=== PATIENT | female | born 1950 | race Native Hawaiian/Other Pacific Islander ===

== ENCOUNTER 2016-12-05 17:10 | Inpatient (IN) | payer OTHER ==
--- NOTE | 2016-12-05 19:22 | C.PDOC ---
History Of Present Illness Patient presents to the ED with complaints of right forearm, wrist, and hand pain status post fall yesterday. Patient had MRI and X-Ray of the right wrist performed and was referred to ED by cryptographic technician. Denies head injury, nausea, or vomiting. - HPI Time Seen by Provider: 12/05/16 19:22 Chief Complaint (Nursing): Finger,Hand,&Wrist History Per: Patient History/Exam Limitations: no limitations Onset/Duration Of Symptoms: Days (1 day ) Injury Occurred (Timing): Days Ago: (yesterday) Location Of Injury: Right: Forearm, Hand, Wrist Severity: Moderate Pain Scale Rating Of: 4 Recent travel outside of the [place]: No Additional History Per: Prior Records (referred by MRI techclaire ) - Fall Fall:Prior To Injury: Slipped Past Medical History Reviewed: Historical Data, Nursing Documentation, Vital Signs Vital Signs: Last Vital Signs Temp 98.0 F 12/05/16 19:31 Pulse 77 12/05/16 19:31 Resp 18 12/05/16 19:31 BP 167/81 H 12/05/16 19:31 Pulse Ox 97 12/05/16 19:43 - Medical History PMH: Arthritis, Back Problems, Gastrointestinal Ulcer, HTN, Hypercholesterolemia Surgical History: Cholecystectomy Denies: Pacemaker - [facility] Procedures COLONOSCOPY (01/06/12) ESOPHAGOGASTRODUODENOSCOPY [EGD] W/CLOSED BIOPSY (01/06/12) Family History: States: Unknown Family Hx - Social History Hx Tobacco Use: No Hx Alcohol Use: No Hx Substance Use: No - Immunization History Hx Influenza Vaccination: Yes Hx Pneumococcal Vaccination: Yes Review Of Systems Constitutional: Negative for: Fever, Chills Cardiovascular: Negative for: Chest Pain Respiratory: Negative for: Shortness of Breath Gastrointestinal: Negative for: Nausea, Vomiting Genitourinary: Negative for: Dysuria Musculoskeletal: Positive for: Arm Pain (right forearm pain ), Hand Pain (right wrist and hand pain ) Neurological: Negative for: Weakness, Numbness Psych: Negative for: Anxiety Physical Exam - Physical Exam Appears: Non-toxic, No Acute Distress Skin: Warm, Dry Head: Atraumatic, Normacephalic Eye(s): bilateral: Normal Inspection Oral Mucosa: Moist Neck: Trachea Midline, Supple Chest: Symmetrical, No Deformity Cardiovascular: Rhythm Regular, No Murmur Respiratory: No Rales, No Rhonchi, No Wheezing Gastrointestinal/Abdominal: Soft, No Tenderness, No Distention Back: Normal Inspection Extremity: No Normal ROM (decreased ROM of the right wrist secondary to pain. ) , Tenderness (diffuse tenderness of the right forearm ), Capillary Refill (good capillary refill, less than two seconds ), No Deformity, Swelling (mild swelling of the right forearm ), Other (ecchymosis and mild swelling of the dorsum of the right hand ) Pulses: Left Radial: Normal, Right Radial: Normal, Left Dorsalis Pedis: Normal, Right Dorsalis Pedis: Normal Neurological/Psych: Oriented x3 (awake, alert, and oriented x3 ), Normal Speech , Normal Cognition, Other (no focal deficits ) Gait: Unable To Assess ED Course And Treatment - Laboratory Results Result Diagrams: 12/05/16 19:51 12/05/16 19:51 O2 Sat by Pulse Oximetry: 97 (RA) Disposition Discussed With : Gina Gordillo Comment: accepted the pt on his service and took over the care at 8:31 PM Doctor Will See Patient In The: Hospital Counseled Patient/Family Regarding: Studies Performed, Diagnosis - Disposition Disposition: HOSPITALIZED Disposition Time: 19:22 Condition: FAIR Forms: [facility] (Slovenian) - POA Present On Arrival: Falls Or Trauma - Clinical Impression Clinical Impression: Fall, Fracture, radius, distal, Ambulatory dysfunction - Scribe Statement The provider has reviewed the documentation as recorded by the Scribe Gay Negron All medical record entries made by the Scribe were at my direction and personally dictated by me. I have reviewed the chart and agree that the record accurately reflects my personal performance of the history, physical exam, medical decision making, and the department course for this patient. I have also personally directed, reviewed, and agree with the discharge instructions and disposition. Decision To Admit - Pt Status Changed To: Hospital Disposition Of: Inpatient - Admit Certification Admit to Inpatient:: After my assessment, the patient will require hospitalization for at least two midnights. This is because of the severity of symptoms shown, intensity of services needed, and/or the medical risk in this patient being treated as an outpatient. - InPatient: Physician Admission Certification: I certify that this patient requires 2 or more midnights of care for the following reason:: After my assessment, the patient will require hospitalization for at least two midnights. This is because of the severity of symptoms shown, intensity of services needed, and/or the medical risk in this patient being treated as an outpatient. - . Bed Request Type: Regular Admitting Physician: Gina Gordillo Patient Diagnosis: Fall, Fracture, radius, distal, Ambulatory dysfunction
[2016-12-05] MEDS ORDERED: Morphine 4 MG/ML VIAL IV STA (19:38)
[2016-12-05] MEDS ORDERED: Sodium Chloride 0.9% 1,000 ML IV SCH (19:45)
[2016-12-05 19:54] LABS: BASO # 0.1 K/uL (0.0-0.2); BASO % 0.9 % (0.0-2.0); EOS # 0.3 K/uL (0.0-0.7); EOS % 5.6 % (0.0-4.0); HEMATOCRIT 40.8 % (34.0-47.0); LYMPH # 1.5 K/uL (1.0-4.3); LYMPH % 25.5 % (20.0-40.0); MEAN CELL VOLUME 98.1 fL (81.0-99.0); MEAN CORPUSCULAR HEMOGLOBIN 33.8 pg (27.0-31.0); MEAN CORPUSCULAR HGB CONC 34.5 g/dL (33.0-37.0); MEAN PLATELET VOLUME 7.7 fL (7.2-11.7); MONO # 0.5 K/uL (0.0-0.8); MONO % 8.9 % (0.0-10.0); RED CELL DISTRIBUTION WIDTH 12.8 % (11.5-14.5); WHITE BLOOD COUNT 5.9 K/uL (4.8-10.8)
[2016-12-05] MEDS ORDERED: Sodium Chloride 0.9% 1,000 ML ONE (19:55)
[2016-12-05 20:03] LABS: CHLORIDE 101 mmol/L (98-107); POTASSIUM 3.4 mmol/L (3.6-5.2); SODIUM 137 mmol/L (132-148)
[2016-12-05 20:06] LABS: BLOOD UREA NITROGEN 17 mg/dL (7-17); CARBON DIOXIDE 26 mmol/L (22-30); GFR AFRICAN-AMERICAN > 60; GLUCOSE,RANDOM 88 mg/dL (65-105)
[2016-12-05 20:07] LABS: CALCIUM 8.9 mg/dl (8.6-10.4)
[2016-12-05] MEDS ORDERED: guaiFENesin DM 100 mg-10 mg/5 ml UD PO PRN (20:44)
[2016-12-05] MEDS ORDERED: Albuterol-Ipratrop 3 mg / 0.5 (3 ml) UD ONE (20:56)
[2016-12-05] MEDS ORDERED: guaiFENesin DM 100 mg-10 mg/5 ml UD ONE (20:56)
[2016-12-05] MEDS: Albuterol-Ipratrop 3 mg / 0.5 (3 ml) UD INH PRN (21:00)
[2016-12-05 22:44] LABS: RBC URINE 6 /hpf (0-3); URINE BILIRUBIN NEGATIVE (NEGATIVE); URINE BLOOD NEGATIVE (NEGATIVE); URINE COLOR Yellow (YELLOW); URINE GLUCOSE (UA) NORMAL (Normal); URINE KETONE 1+ mg/dL (NEGATIVE); URINE LEUKOCYTE ESTERASE NEG Leu/uL (Negative); URINE PROTEIN NEGATIVE (NEGATIVE); WBC URINE 2 /hpf (0-5)
[2016-12-05] MEDS: Oxycodone/Acetaminophen 5/325 mg Tab PO PRN (23:56)
[2016-12-05 23:58] LABS: INR 0.9
[2016-12-06] MEDS: Oxycodone/Acetaminophen 5/325 mg Tab PO PRN (09:40)
[2016-12-06] MEDS ORDERED: Home Med 1 UNIT (Meloxicam [Mobic] 15 MG) PO SCH ×2 (10:00)
[2016-12-06] MEDS: Pantoprazole 40 mg EC Tab PO SCH (13:00)
[2016-12-06] MEDS ORDERED: Potassium Chloride 20 mEq ER Tab PO SCH (14:15)
--- NOTE | 2016-12-07 09:56 | HP ---
HISTORY OF PRESENT ILLNESS: The patient is a 66-year-old female, admitted to the hospital for a fall, sustained a radial fracture, was in severe pain, put in a splint. Advised admission. PAST MEDICAL HISTORY: Hypertension. PHYSICAL EXAMINATION: GENERAL: The patient is awake, alert, and oriented. VITAL SIGNS: Temperature 98 and pulse 90. HEENT: Within normal limits. NECK: Supple. CHEST: Symmetrical. HEART: Regular. ABDOMEN: Soft. EXTREMITIES: No edema. IMPRESSION: There is a splint applied to the right forearm distal from the recurrent fall and fractured radius, arthritis, spinal stenosis, hypertension, pain management, also consult . Gina Gordillo MD
--- NOTE | 2016-12-07 10:04 | CP.PCM.PN ---
Subjective - Date & Time of Evaluation Date of Evaluation: 12/07/16 Time of Evaluation: 13:30 - Subjective Subjective: Patient was admitted for right distal fracture for ortho f/u; ortho is recommending that the patient f/u in the clinic as an outpatient as is dr schroeder however the patient is convinced she is in too much pain to go home. She has no other complaints; denies fevers/chills, MEREDITH, CP, SOB, abdominal pain, N/V/ D, dysuria/freq/urg or lower extremity pain/swelling. Objective - Vital Signs/Intake and Output Vital Signs (last 24 hours): Temp Pulse Resp BP Pulse Ox 98.1 F 46 L 18 168/79 H 95 12/07/16 07:05 12/07/16 07:05 12/07/16 07:05 12/07/16 07:05 12/07/16 07:05 Intake and Output: 12/07/16 12/07/16 06:59 18:59 Intake Total 150 Balance 150 - Medications Medications: Current Medications Albuterol/Ipratropium (Duoneb 3 Mg/0.5 Mg (3 Ml) Ud) 3 ml INH RQ4 PRN PRN Reason: cough/wheezing Last Admin: 12/05/16 21:00 Dose: 3 ml Amlodipine Besylate (Norvasc) 10 mg PO DAILY [facility] Last Admin: 12/06/16 09:40 Dose: 10 mg Diphenhydramine HCl (Benadryl) 25 mg PO Q6 PRN PRN Reason: Itching / Pruritus Last Admin: 12/06/16 19:11 Dose: 25 mg Guaifenesin/Dextromethorphan (Robitussin Dm) 5 ml PO QID PRN PRN Reason: Cough Last Admin: 12/05/16 20:57 Dose: 5 ml Home Med (Meloxicam [Mobic]) 15 mg PO DAILY [facility] Ketorolac Tromethamine (Toradol) 30 mg IVP Q6 PRN PRN Reason: Pain, Mild (1-3) Last Admin: 12/06/16 19:11 Dose: 30 mg Losartan Potassium (Cozaar) 100 mg PO DAILY [facility] Last Admin: 12/06/16 09:40 Dose: 100 mg Oxycodone/Acetaminophen (Percocet 5/325 Mg Tab) 1 tab PO Q4 PRN PRN Reason: pain Stop: 12/08/16 20:38 Last Admin: 12/06/16 09:40 Dose: 1 tab Pantoprazole Sodium (Protonix Ec Tab) 40 mg PO DAILY [facility] Last Admin: 12/06/16 13:00 Dose: 40 mg Pneumococcal Polyvalent Vaccine (Pneumovax 23 Vaccine) 0.5 ml IM .ONCE ONE Stop: 12/08/16 10:01 Promethazine HCl/Codeine (Phenergan/Codeine Oral Syrup) 5 ml PO Q4 PRN PRN Reason: Cough Rosuvastatin Calcium (Crestor) 10 mg PO DAILY [facility] Last Admin: 12/06/16 09:40 Dose: 10 mg - Labs Labs: 12/05/16 19:51 12/05/16 19:51 PT 10.4 SECONDS (9.7-12.2) 12/05/16 23:27 INR 0.9 12/05/16 23:27 - Constitutional Appears: Non-toxic - Head Exam Head Exam: ATRAUMATIC - Eye Exam Eye Exam: EOMI Pupil Exam: PERRL - ENT Exam ENT Exam: Mucous Membranes Moist - Neck Exam Neck Exam: Full ROM - Respiratory Exam Respiratory Exam: Clear to Ausculation Bilateral, NORMAL BREATHING PATTERN. absent: Rales, Rhonchi - Cardiovascular Exam Cardiovascular Exam: REGULAR RHYTHM - GI/Abdominal Exam GI & Abdominal Exam: Soft, Normal Bowel Sounds - Extremities Exam Extremities Exam: Full ROM (patient has a cast in place with a sling; patient is uncomfortable but not in distress ). absent: Calf Tenderness - Back Exam Back Exam: NORMAL INSPECTION. absent: CVA tenderness (L), CVA tenderness (R) - Neurological Exam Neurological Exam: Alert, Awake, Oriented x3 - Psychiatric Exam Psychiatric exam: Anxious - Skin Skin Exam: Warm Assessment and Plan - Assessment and Plan (Free Text) Assessment: 66yo F admitted for R distal radius fx R Distal radius fx -appreciate ortho recs; recommending that the patient be discharged and follow up as outpatient for her fracture -not recommending to change the cast at this time either -x-ray shows that the fracture has sufficiently been reduced -patient already has cast in place -percocet prescription printed for pain control for the patient HTN -c/w home meds; please refer to [facility] -c/w with home meds; please refer to [facility] Prophylaxis Pepcid heart healthy diet scd All management as per Dr. Schroeder
[2016-12-07] MEDS: Pantoprazole 40 mg EC Tab PO SCH (10:24)
[2016-12-07] MEDS: Promethazine/Cod 6.25mg-10mg/5ml Syr UD PO PRN ×2 (10:25→22:15)
--- NOTE | 2016-12-07 11:42 | RAD ---
PROCEDURE: Bilateral wrists dated 12/07/2016 Multiple views of the left wrist. Additionally, three views of the right wrist performed through a fiberglass cast. HISTORY: Right t wrist distal radius fracture COMPARISON: No prior FINDINGS: BONES: Current study reveals a slightly impacted and probably comminuted transverse fracture extending through the distal right radius. . There is relative satisfactory alignment of the fracture fragments. Left wrist appears intact without evidence of acute displaced fracture nor dislocation. . There are no radiopaque foreign body seen. IMPRESSION: Transverse apparent comminuted and slightly impacted fracture distal right radius as above. No evidence of acute left wrist fracture.
--- NOTE | 2016-12-07 16:26 | CT ---
CT right wrist History: Distal radial fracture. Comparison: X-ray dated 12/07/2016 Technique: Multiple contiguous axial images were performed through the right wrist without the use of intravenous contrast. Subsequently, sagittal and coronal reformatted images were obtained. Findings: Impacted comminuted fracture of the distal right radius extending horizontally predominantly through the physis extending to the circumferential cortices. There is a suggestion of a vertically oriented component on series 601, images 27 and 28 which possibly extends through epiphysis to the articular surface. Correlation with MRI may be helpful if clinically indicated. Patchy osteopenia and overlying cast somewhat limit evaluation of the carpal bones and metacarpal bases. No evidence of acute displaced fracture of the visualized carpal bones. More limited evaluation of the metacarpal bases. Prominent reticulation and edema within the circumferential subcutaneous soft tissues. Impression: Impacted comminuted fracture of the distal right radius extending horizontally predominantly through the physis extending to the circumferential cortices. There is a suggestion of a vertically oriented component on series 601, images 27 and 28 which possibly extends through epiphysis to the articular surface. Correlation with MRI may be helpful if clinically indicated.
[2016-12-07] MEDS: Oxycodone/Acetaminophen 5/325 mg Tab PO PRN ×2 (17:44→23:43)
[2016-12-07 18:21] VITALS: RESP 20; O2SAT 97
--- NOTE | 2016-12-08 07:33 | CP.PCM.PN ---
Subjective - Date & Time of Evaluation Date of Evaluation: 12/08/16 Time of Evaluation: 11:00 - Subjective Subjective: Dr. Gordillo note: Patient seen and examined in room. Patient has a cast on her right arm. Objective - Vital Signs/Intake and Output Vital Signs (last 24 hours): Temp Pulse Resp BP Pulse Ox 97.5 F L 52 L 20 110/68 97 12/07/16 23:25 12/07/16 23:25 12/07/16 23:25 12/08/16 04:30 12/07/16 23:25 Intake and Output: 12/08/16 12/08/16 06:59 18:59 Intake Total 600 Output Total 650 Balance -50 - Medications Medications: Current Medications Albuterol/Ipratropium (Duoneb 3 Mg/0.5 Mg (3 Ml) Ud) 3 ml INH RQ4 PRN PRN Reason: cough/wheezing Last Admin: 12/05/16 21:00 Dose: 3 ml Amlodipine Besylate (Norvasc) 10 mg PO DAILY [facility] Last Admin: 12/07/16 10:24 Dose: 10 mg Diphenhydramine HCl (Benadryl) 25 mg PO Q6 PRN PRN Reason: Itching / Pruritus Last Admin: 12/06/16 19:11 Dose: 25 mg Ketorolac Tromethamine (Toradol) 30 mg IVP Q6 PRN PRN Reason: Pain, Mild (1-3) Last Admin: 12/06/16 19:11 Dose: 30 mg Losartan Potassium (Cozaar) 100 mg PO DAILY [facility] Last Admin: 12/07/16 10:24 Dose: 100 mg Oxycodone/Acetaminophen (Percocet 5/325 Mg Tab) 1 tab PO Q4 PRN PRN Reason: pain 4-10 Stop: 12/08/16 20:38 Last Admin: 12/07/16 23:43 Dose: 1 tab Pantoprazole Sodium (Protonix Ec Tab) 40 mg PO DAILY [facility] Last Admin: 12/07/16 10:24 Dose: 40 mg Pneumococcal Polyvalent Vaccine (Pneumovax 23 Vaccine) 0.5 ml IM .ONCE ONE Stop: 12/08/16 10:01 Promethazine HCl/Codeine (Phenergan/Codeine Oral Syrup) 5 ml PO Q4 PRN PRN Reason: Cough Last Admin: 12/07/16 22:15 Dose: 5 ml Rosuvastatin Calcium (Crestor) 10 mg PO HS [facility] - Labs Labs: 12/05/16 19:51 12/05/16 19:51 PT 10.4 SECONDS (9.7-12.2) 12/05/16 23:27 INR 0.9 12/05/16 23:27 - Constitutional Appears: Non-toxic, No Acute Distress - Respiratory Exam Respiratory Exam: Clear to Ausculation Bilateral. absent: Rales, Rhonchi, Wheezes - Cardiovascular Exam Cardiovascular Exam: REGULAR RHYTHM, RRR, +S1, +S2. absent: Gallop, Rubs - GI/Abdominal Exam GI & Abdominal Exam: Soft - Extremities Exam Extremities Exam: absent: Pedal Edema - Back Exam Back Exam: NORMAL INSPECTION Assessment and Plan - Assessment and Plan (Free Text) Assessment: Assessment: 12/08: Patient discharged to follow up with Dr. Hernandez as outpatient. 66yo F admitted for R distal radius fx R Distal radius fx -appreciate ortho recs; recommending that the patient be discharged and follow up as outpatient for her fracture -not recommending to change the cast at this time either -x-ray shows that the fracture has sufficiently been reduced -patient already has cast in place -percocet prescription printed for pain control for the patient HTN -c/w home meds; please refer to [facility] -c/w with home meds; please refer to [facility] Prophylaxis Pepcid heart healthy diet scd All management as per Dr. Gordillo
[2016-12-08 07:55] VITALS: TEMP 97.8
[2016-12-08] MEDS: Albuterol-Ipratrop 3 mg / 0.5 (3 ml) UD INH PRN (07:58)
[2016-12-08] MEDS ORDERED: Influenza Vaccine 60 mcg/0.5 mL SYR (4YR UP) IM ONE (10:00)
[2016-12-08] MEDS ORDERED: Pneumococcal 23-Valent Vaccine IM ONE (10:00)
[2016-12-08] MEDS: Pantoprazole 40 mg EC Tab PO SCH (10:21)
[2016-12-08] MEDS: Promethazine/Cod 6.25mg-10mg/5ml Syr UD PO PRN (10:21)
[2016-12-08 10:26] VITALS: BP 127/69; PULSE 61
--- NOTE | 2016-12-08 14:49 | CP.PCM.CON ---
History of Present Illness - History of Present Illness History of Present Illness: Orthopedic consultation as requested for Dr. Dumont 66F complains of right wrist pain after fall. She was seen and splinted in the ER, and admitted for intractable pain and unsteady gait. Patient currently complaining of a lot of pain in her wrist. Denies pain in her elbow or shoulder. Denies pain in other extremities. Denies CP/SOB/dizziness/numbness/ tingling. RHD. Review of Systems - Review of Systems All systems: reviewed and no additional remarkable complaints except - Constitutional Additional comments: [id number] fever/chills - Cardiovascular Cardiovascular: As Per HPI - Respiratory Respiratory: As Per HPI - Gastrointestinal Gastrointestinal: As Per HPI - Musculoskeletal Musculoskeletal: As Per HPI - Integumentary Integumentary: Swelling - Neurological Neurological: As Per HPI - Hematologic/Lymphatic Hematologic: absent: As Per HPI, Easy Bleeding, Easy Bruising, Lymphadenopathy, Other Past Patient History - Infectious Disease Hx of Infectious Diseases: None - Past Medical History & Family History Past Medical History?: Yes Past Family History: Reviewed and not pertinent - Past Social History Smoking Status: Never Smoked - CARDIAC Hx Hypercholesterolemia: Yes Hx Hypertension: Yes - PULMONARY Hx Respiratory Disorders: No - NEUROLOGICAL Hx Paralysis: No - HEENT Hx Cataracts: Yes - RENAL Hx Chronic Kidney Disease: No - ENDOCRINE/METABOLIC Hx Endocrine Disorders: No - HEMATOLOGICAL/ONCOLOGICAL Hx Blood Transfusions: No Hx Blood Transfusion Reaction: No - INTEGUMENTARY Hx Dermatological Problems: No - MUSCULOSKELETAL/RHEUMATOLOGICAL Hx Arthritis: Yes - GASTROINTESTINAL Hx Ulcer: Yes - GENITOURINARY/GYNECOLOGICAL Hx Genitourinary Disorders: No - PSYCHIATRIC Hx Substance Use: No - SURGICAL HISTORY Hx Cholecystectomy: Yes - ANESTHESIA Hx Anesthesia: Yes Hx Anesthesia Reactions: No Meds Home Medications: Home Medication List Medication Instructions Recorded Confirmed Type oxyCODONE/Acetaminophen [Percocet 1 ea PO Q6H #20 tab 12/07/16 Rx 5/325 mg Tab] Allergies/Adverse Reactions: Allergies Allergy/AdvReac Type Severity Reaction Status Date / Time Penicillins Allergy Severe RASH Verified 12/05/16 17:26 CRABS Allergy Severe RASH Uncoded 12/05/16 17:26 - Medications Medications: Current Medications Albuterol/Ipratropium (Duoneb 3 Mg/0.5 Mg (3 Ml) Ud) 3 ml INH RQ4 PRN PRN Reason: cough/wheezing Last Admin: 12/08/16 07:58 Dose: 3 ml Amlodipine Besylate (Norvasc) 10 mg PO DAILY [facility] Last Admin: 12/08/16 10:21 Dose: 10 mg Diphenhydramine HCl (Benadryl) 25 mg PO Q6 PRN PRN Reason: Itching / Pruritus Last Admin: 12/06/16 19:11 Dose: 25 mg Ketorolac Tromethamine (Toradol) 30 mg IVP Q6 PRN PRN Reason: Pain, Mild (1-3) Last Admin: 12/08/16 13:31 Dose: 30 mg Losartan Potassium (Cozaar) 100 mg PO DAILY [facility] Last Admin: 12/08/16 10:21 Dose: 100 mg Oxycodone/Acetaminophen (Percocet 5/325 Mg Tab) 1 tab PO Q4 PRN PRN Reason: pain 4-10 Stop: 12/08/16 20:38 Last Admin: 12/07/16 23:43 Dose: 1 tab Pantoprazole Sodium (Protonix Ec Tab) 40 mg PO DAILY [facility] Last Admin: 12/08/16 10:21 Dose: 40 mg Promethazine HCl/Codeine (Phenergan/Codeine Oral Syrup) 5 ml PO Q4 PRN PRN Reason: Cough Last Admin: 12/07/16 22:15 Dose: 5 ml Rosuvastatin Calcium (Crestor) 10 mg PO HS [facility] Physical Exam - Constitutional Appears: Well, No Acute Distress Additional comments: complains of pain during exam able to sit up in bed without assistance or painful distress - Head Exam Head Exam: ATRAUMATIC, NORMAL INSPECTION - Respiratory Exam Respiratory Exam: NORMAL BREATHING PATTERN - Expanded Upper Extremities Exam Right Shoulder exam: full ROM Elbow exam: normal inspection (splinted, non tender) Forearm Wrist exam: swelling (fingers swollen, mild, sling adjusted, instructed on elevation) Neuro motor exam: finger 2-5 abduction intact, thumb abduction, thumb IP flexion intact, thumb opposition intact, wrist extension intact Neurosensory exam: median nerve intact, radial nerve intact, ulnar nerve intact Vascular exam: radial pulse, ulnar pulse - Neurological Exam Neurological exam: Alert, Oriented x3 - Psychiatric Exam Psychiatric exam: Normal Affect, Normal Mood - Skin Skin Exam: Dry, Intact, Normal Color, Warm Results - Vital Signs Recent Vital Signs: Last Vital Signs Temp 97.8 F 12/08/16 07:00 Pulse 61 12/08/16 10:26 Resp 20 12/08/16 07:00 BP 127/69 12/08/16 10:26 Pulse Ox 97 12/08/16 07:00 - Labs Result Diagrams: 12/05/16 19:51 12/05/16 19:51 Assessment & Plan (1) Fracture, radius, distal Assessment and Plan: sugar tong splint intact sling intact, adjusted Position acceptable for discharge. Patient instructed she needs close follow up with orthopedic as outpatient within 1 week, that splint is not to be removed and to be kept dry, and that it is possible that the patient may need surgery in the future, especially if the position of the fracture is not maintained. Patient also advised that pain is to be expected, and to take pain medication as needed. Instructed on elevation (fingers swollen, patient has not been elevating during admission ice keep splint dry/intact call Dr. Dumont for follow up within 1 week without fail d/w Dr. Dumont, agrees with above Status: Acute Radiology Interpretation - Manager Gas Manager Gas:: Radiologist, Telegraph Mechanic - Radiology Interpretation #2 Interpretation: Patient Name / ID : MIRELLA BOGGS D / [id number] Exam Date : 12/07/2016 11:00:17 ( Approved ) Study Comment : Sex / Age : F / 66Y Creator : Franck Ashby MD Dictator : [employer] Grower : [employer] Drilling Machine Operator : Franck Ashby MD Approver2 : Report Date : 12/07/2016 11:40:51 My Comment : PROCEDURE: Bilateral wrists dated 12/07/2016 Multiple views of the left wrist. Additionally, three views of the right wrist performed through a fiberglass cast. HISTORY: Right t wrist distal radius fracture COMPARISON: No prior FINDINGS: BONES: Current study reveals a slightly impacted and probably comminuted transverse fracture extending through the distal right radius. . There is relative satisfactory alignment of the fracture fragments. Left wrist appears intact without evidence of acute displaced fracture nor dislocation. . There are no radiopaque foreign body seen. IMPRESSION: Transverse apparent comminuted and slightly impacted fracture distal right radius as above. No evidence of acute left wrist fracture. Patient Name / ID : MIRELLA BOGGS D / [id number] Exam Date : 12/07/2016 15:21:36 ( Approved ) Study Comment : Sex / Age : F / 66Y Creator : Keshia Schmitt Dictator : Dariel Loomis MD Bean Spr[employer] Grower : [employer] Drilling Machine Operator : Dariel Loomis MD Approver2 : Report Date : 12/07/2016 15:35:29 My Comment : CT right wrist History: Distal radial fracture. Comparison: X-ray dated 12/07/2016 Technique: Multiple contiguous axial images were performed through the right wrist without the use of intravenous contrast. Subsequently, sagittal and coronal reformatted images were obtained. Findings: Impacted comminuted fracture of the distal right radius extending horizontally predominantly through the physis extending to the circumferential cortices. There is a suggestion of a vertically oriented component on series 601, images 27 and 28 which possibly extends through epiphysis to the articular surface. Correlation with MRI may be helpful if clinically indicated. Patchy osteopenia and overlying cast somewhat limit evaluation of the carpal bones and metacarpal bases. No evidence of acute displaced fracture of the visualized carpal bones. More limited evaluation of the metacarpal bases. Prominent reticulation and edema within the circumferential subcutaneous soft tissues. Impression: Impacted comminuted fracture of the distal right radius extending horizontally predominantly through the physis extending to the circumferential cortices. There is a suggestion of a vertically oriented component on series 601, images 27 and 28 which possibly extends through epiphysis to the articular surface. Correlation with MRI may be helpful if clinically indicated.
== END 2016-12-08 15:10 | disposition home or self-care (01) | DRG 563 ==
LOC: C.ER 17:10 → C.9E 20:28 → C.6T 21:58
PROVIDERS: ADMIT Internal Medicine Pulmonary Disease; ATTEND Internal Medicine Pulmonary Disease
DX: S52.501A Unspecified fracture of the lower end of right radius, initial encounter for closed fracture (principal); I10 Essential (primary) hypertension; W19.XXXA Unspecified fall, initial encounter; M48.00 Spinal stenosis, site unspecified; E78.5 Hyperlipidemia, unspecified

== ENCOUNTER 2017-06-26 06:48 | Emergency (ER) | payer OTHER ==
[2017-06-26 07:24] VITALS: RESP 18; TEMP 98.2
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
[2017-06-26 08:44] VITALS: BP 166/79; PULSE 60; O2SAT 96
--- NOTE | 2017-06-26 15:52 | RAD ---
PROCEDURE: Bilateral wrists HISTORY: Trauma COMPARISON: Comparison made with prior bilateral wrist radiographs dated 12/07/2016. . Correlation also made with concurrent radiographs of the right forearm FINDINGS: BONES: There is a healing fracture distal right radius. . No definitive evidence of acute displaced fracture nor dislocation. Mild diffuse demineralization. . The left wrist appears intact without evidence of acute displaced fracture nor dislocation. The osseous structures intact. JOINT SPACES: Mild degenerative osteoarthritis seen along the greater multangular/1st metacarpal articulations bilaterally right greater than left. . SOFT TISSUES: There is mild nonspecific diffuse soft tissue swelling seen along the distal right radius and ulna and wrist. OTHER FINDINGS: None. IMPRESSION: No evidence of acute displaced fracture. Old healed fracture deformity right distal radius. Mild DJD as described
--- NOTE | 2017-06-26 15:54 | RAD ---
PROCEDURE: Radiographs of the Right Forearm HISTORY: Trauma COMPARISON: Comparison made with concurrent radiographs of the right wrist as well as prior radiographs and CT scan of the right wrist and right upper extremity 12/07/2016. TECHNIQUE: Frontal and lateral views obtained. FINDINGS: BONES: Re- demonstrated is an old healed fracture deformity of the distal right radius. . The osseous structures otherwise intact without evidence of acute displaced fracture nor dislocation. There appears to be some mild diffuse soft tissue swelling of the right forearm and right wrist. JOINT SPACES: Mild multi articular degenerative osteoarthritis. The the OTHER FINDINGS: None. IMPRESSION: Old healed fracture deformity distal right radius. No evidence of acute displaced fracture nor dislocation seen at this time
--- NOTE | 2017-06-28 12:22 | CARD ---
APPROVED REPORT EKG Measurement Heart [id number] <Conclusion> Sinus bradycardia T wave abnormality, consider lateral ischemia Abnormal ECG
== END 2017-06-26 08:50 | disposition home or self-care (01) ==
LOC: C.ER 06:48
DX: S63.501A Unspecified sprain of right wrist, initial encounter (principal); W19.XXXA Unspecified fall, initial encounter; R00.2 Palpitations
CPT/HCPCS: 73090; 73110; 93005; 96372; 99284; J1885

== ENCOUNTER 2017-07-09 20:34 | Inpatient (IN) | payer OTHER ==
[2017-07-09 20:40] VITALS: BMI 23.4
[2017-07-09] MEDS ORDERED: Albuterol-Ipratrop 3 mg / 0.5 (3 ml) UD ONE ×2 (20:44→20:47)
--- NOTE | 2017-07-09 20:52 | C.PDOC ---
History Of Present Illness 67 year old female, PMHx of asthma, presents to the ED with complaints of shortness of breath. Patient denies chest pain, palpitations, weakness, numbness , or recent travel. Patient has no other medical complaints. Chief Complaint (Nursing): Shortness Of Breath History Per: Patient History/Exam Limitations: no limitations Onset/Duration Of Symptoms: Hrs Recent travel outside of the [place]: No Past Medical History Reviewed: Historical Data, Nursing Documentation, Vital Signs Vital Signs: Last Vital Signs Temp 98 F 07/09/17 20:35 Pulse 54 L 07/09/17 21:44 Resp 12 07/09/17 21:44 BP 121/77 07/09/17 21:44 Pulse Ox 100 07/09/17 22:01 - Medical History PMH: Arthritis, Back Problems, Fractures, Gastrointestinal Ulcer, HTN, Hypercholesterolemia Denies: Chronic Kidney Disease Surgical History: Cholecystectomy Denies: Pacemaker - [facility] Procedures COLONOSCOPY (01/06/12) ESOPHAGOGASTRODUODENOSCOPY [EGD] W/CLOSED BIOPSY (01/06/12) Family History: States: Unknown Family Hx - Social History Hx Tobacco Use: No Hx Alcohol Use: No Hx Substance Use: No - Immunization History Hx Tetanus Toxoid Vaccination: No Hx Influenza Vaccination: Yes Hx Pneumococcal Vaccination: Yes Review Of Systems Except As Marked, All Systems Reviewed And Found Negative. Constitutional: Negative for: Fever, Chills, Weakness Cardiovascular: Negative for: Chest Pain, Palpitations Respiratory: Positive for: Shortness of Breath Neurological: Negative for: Weakness, Numbness Physical Exam - Physical Exam Appears: Non-toxic, In Acute Distress Skin: Normal Color, Warm, Dry Head: Atraumatic, Normacephalic Eye(s): bilateral: Normal Inspection Oral Mucosa: Moist Chest: Symmetrical Cardiovascular: Rhythm Regular, No Murmur Respiratory: No Normal Breath Sounds (Bilateral coarse breath sounds ), No Rales , No Rhonchi, No Wheezing, Other (Mild dyspneic ) Gastrointestinal/Abdominal: Soft, No Tenderness, No Guarding, No Rebound Extremity: Other (Cast on left foream from previous fracture ) Extremity: Bilateral: No Pedal Edema Neurological/Psych: Oriented x3 ED Course And Treatment - Laboratory Results Result Diagrams: 07/09/17 21:01 07/09/17 21:01 O2 Sat by Pulse Oximetry: 100 (RA) Pulse Ox Interpretation: Normal Medical Decision Making Medical Decision Making: Impression: Shortness of Breath Plan: -ABG -EKG -Bloodwork -Duoneb 3ml INH -Morphine 2mg IVP -Solumedrol 125 mg IVP -Trandate 10mg IV Disposition Discussed With : Gina Gordillo Doctor Will See Patient In The: Hospital Counseled Patient/Family Regarding: Diagnosis - Disposition Disposition: HOSPITALIZED Disposition Time: 21:59 Condition: STABLE Forms: [facility] ([place]ian) - Clinical Impression Clinical Impression: Exacerbation of asthma - Scribe Statement The provider has reviewed the documentation as recorded by the Scribe (Cecilia Hussein) Provider Attestation: All medical record entries made by the Scribe were at my direction and personally dictated by me. I have reviewed the chart and agree that the record accurately reflects my personal performance of the history, physical exam, medical decision making, and the department course for this patient. I have also personally directed, reviewed, and agree with the discharge instructions and disposition.
[2017-07-09] MEDS ORDERED: Albuterol-Ipratrop 3 mg / 0.5 (3 ml) UD INH STA (20:53)
[2017-07-09] MEDS ORDERED: Labetalol 25mg/5ml Syringe ONE (20:53)
[2017-07-09] MEDS ORDERED: Labetalol 5 mg/ml Inj 20ML IV STA (20:54)
[2017-07-09 21:02] LABS: ABG ALLEN TEST PO; ARTERIAL BLOOD GAS HCO3 23.7 mmol/L (21-28); ARTERIAL BLOOD GAS O2 SAT 98.7 % (95-98); ARTERIAL BLOOD GAS PCO2 38 mm/Hg (35-45); ARTERIAL BLOOD GAS PH 7.39 (7.35-7.45); ARTERIAL BLOOD GAS PO2 514 mm/Hg (80-100); ARTERIAL BLOOD GAS TCO2 24.2 mmol/L (22-28)
[2017-07-09 21:04] LABS: BASO # 0.1 K/uL (0.0-0.2); BASO % 2.2 % (0.0-2.0); EOS # 0.2 K/uL (0.0-0.7); EOS % 3.5 % (0.0-4.0); HEMOGLOBIN 13.4 g/dL (11.0-16.0); LYMPH # 1.9 K/uL (1.0-4.3); LYMPH % 33.8 % (20.0-40.0); MEAN CORPUSCULAR HEMOGLOBIN 33.8 pg (27.0-31.0); MEAN CORPUSCULAR HGB CONC 33.8 g/dL (33.0-37.0); MEAN PLATELET VOLUME 7.3 fL (7.2-11.7); MONO # 0.5 K/uL (0.0-0.8); NEUT % 52.5 % (50.0-75.0); RBC 3.95 Mil/uL (3.80-5.20); RED CELL DISTRIBUTION WIDTH 13.2 % (11.5-14.5); WHITE BLOOD COUNT 5.7 K/uL (4.8-10.8)
[2017-07-09] MEDS ORDERED: Morphine 4 MG/ML VIAL ONE (21:12)
[2017-07-09 21:16] LABS: ALB/GLOB RATIO 1.2 (1.0-2.1); ALBUMIN 3.9 g/dL (3.5-5.0); ALT/SGPT 45 U/L (9-52); AST/SGOT 47 U/L (14-36); BLOOD UREA NITROGEN 29 mg/dL (7-17); CALCIUM 8.8 mg/dl (8.6-10.4); GFR AFRICAN-AMERICAN > 60; GFR NON-AFRICAN AMERICAN > 60
[2017-07-09 21:19] LABS: D DIMER < 200 ng/mlDDU (0-243); INR 0.9; PARTIAL THROMBOPLASTIN TIME 31 SECONDS (21-34); PROTHROMBIN TIME 10.2 SECONDS (9.7-12.2)
[2017-07-09 21:28] LABS: B-TYPE NATRIURETIC PEPTIDE 236 pg/mL (0-900)
[2017-07-09 22:30] LABS: SQUAMOUS EPITHIAL 1 /hpf (0-5); URINE BACTERIA OCC (<OCC); URINE BILIRUBIN NEGATIVE (NEGATIVE); URINE BLOOD 2+ (NEGATIVE); URINE CLARITY Hazy (Clear); URINE COLOR Yellow (YELLOW); URINE GLUCOSE (UA) 1+ mg/dL (Normal); URINE LEUKOCYTE ESTERASE NEG Leu/uL (Negative); URINE PROTEIN 1+ mg/dL (NEGATIVE); URINE UROBILINOGEN NORMAL mg/dL (0.2-1.0)
--- NOTE | 2017-07-10 08:01 | RAD ---
Chest x-ray single frontal view History: Shortness of breath. Comparison: 08/30/2015 Findings: Biapical pleural thickening with upper lobe granulomatous changes. No gross focal infiltrate or effusion. Bibasilar breast and nipple shadows. Heart size within normal limits. Calcification at the aortic knob. Degenerative changes in the spine and shoulders. Impression: Biapical pleural thickening with upper lobe granulomatous changes. No gross focal infiltrate or effusion. Bibasilar breast and nipple shadows.
[2017-07-10] MEDS: Enoxaparin 40 mg Syringe SC SCH (10:36)
[2017-07-10] MEDS: Albuterol-Ipratrop 3 mg / 0.5 (3 ml) UD INH PRN ×3 (11:22→19:28)
[2017-07-10] MEDS: MethylPREDNISolone 40 mg Vial IVP SCH ×2 (13:11→21:14)
[2017-07-10] MEDS: Fluticasone-Salmeterol 250-50mcg Diskus INH SCH (19:29)
[2017-07-11] MEDS: MethylPREDNISolone 40 mg Vial IVP SCH ×4 (06:18→21:37)
[2017-07-11] MEDS: Albuterol-Ipratrop 3 mg / 0.5 (3 ml) UD INH PRN ×2 (08:02→19:48)
[2017-07-11] MEDS: Fluticasone-Salmeterol 250-50mcg Diskus INH SCH ×2 (08:02→19:48)
[2017-07-11] MEDS: Enoxaparin 40 mg Syringe SC SCH (09:19)
--- NOTE | 2017-07-11 21:43 | PN ---
DATE: 07/11/2017 SUBJECTIVE: The patient is complaining of headache. bronchodilators, steroids. Gina Gordillo MD
[2017-07-12] MEDS: MethylPREDNISolone 40 mg Vial IVP SCH ×3 (05:43→17:31)
[2017-07-12] MEDS: Fluticasone-Salmeterol 250-50mcg Diskus INH SCH ×2 (07:29→19:35)
[2017-07-12] MEDS: Albuterol-Ipratrop 3 mg / 0.5 (3 ml) UD INH PRN ×3 (07:29→16:39)
--- NOTE | 2017-07-12 08:11 | HP ---
HISTORY OF PRESENT ILLNESS: The patient is a 67-year-old male with history of arthritis, COPD, hypertension, disorder who has a chief complaint of shortness of breath, weakness, fatigue, tiredness, patient came to the ER, advised admission. The patient is . PHYSICAL EXAMINATION: GENERAL: The patient is currently awake, alert. Shortness of breath appear to be improved. VITAL SIGNS: Temperature 98, pulse of 98. HEENT: Within normal limits. NECK: Supple. CHEST: Symmetrical. Decreased air entry bilaterally . HEART: Regular. ABDOMEN: Soft. EXTREMITIES: No edema. IMPRESSION: The patient has chronic obstructive pulmonary disease, bronchitis. Patient bed rest, supportive care. Gina Gordillo MD
[2017-07-12] MEDS: Enoxaparin 40 mg Syringe SC SCH (09:20)
[2017-07-12] MEDS ORDERED: MethylPREDNISolone 40 mg Vial IVP SCH (10:00)
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
[2017-07-12 12:05] LABS: BASO % 0.1 % (0.0-2.0); HEMOGLOBIN 13.6 g/dL (11.0-16.0); LYMPH # 0.3 K/uL (1.0-4.3); LYMPH % 3.8 % (20.0-40.0); MEAN CELL VOLUME 99.6 fL (81.0-99.0); MEAN CORPUSCULAR HEMOGLOBIN 34.8 pg (27.0-31.0); MEAN CORPUSCULAR HGB CONC 34.9 g/dL (33.0-37.0); MEAN PLATELET VOLUME 7.7 fL (7.2-11.7); MONO # 0.1 K/uL (0.0-0.8); MONO % 1.5 % (0.0-10.0); NEUT # 8.1 K/uL (1.8-7.0); NEUT % 94.6 % (50.0-75.0); PLATELET COUNT 256 K/uL (130-400); RED CELL DISTRIBUTION WIDTH 13.1 % (11.5-14.5); WHITE BLOOD COUNT 8.5 K/uL (4.8-10.8)
[2017-07-12 12:20] LABS: ALB/GLOB RATIO 1.3 (1.0-2.1); ALBUMIN 3.9 g/dL (3.5-5.0); ALT/SGPT 29 U/L (9-52); AST/SGOT 31 U/L (14-36); BLOOD UREA NITROGEN 25 mg/dL (7-17); CALCIUM 9.1 mg/dl (8.6-10.4); GFR AFRICAN-AMERICAN > 60; GFR NON-AFRICAN AMERICAN > 60
[2017-07-12 13:00] LABS: LYMPHOCYTE 2 % (20-40); MONOCYTE 2 % (0-10); NEUTROPHIL 96 % (50-75); TOTAL CELLS COUNTED 100
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
[2017-07-12 13:02] LABS: ANISOCYTOSIS SLIGHT; HYPOCHROMIC SLIGHT; PLATELET ESTIMATE NORMAL (NORMAL); POLYCHROMIC SLIGHT
[2017-07-12] MEDS: Lidocaine 5% Patch TD SCH (13:51)
[2017-07-13] MEDS: MethylPREDNISolone 40 mg Vial IVP SCH ×2 (05:13→18:22)
[2017-07-13] MEDS: Albuterol-Ipratrop 3 mg / 0.5 (3 ml) UD INH PRN ×3 (07:27→19:45)
[2017-07-13] MEDS: Fluticasone-Salmeterol 250-50mcg Diskus INH SCH ×2 (07:27→19:45)
[2017-07-13] MEDS: Enoxaparin 40 mg Syringe SC SCH (10:38)
[2017-07-13] MEDS: Lidocaine 5% Patch TD SCH (10:39)
--- NOTE | 2017-07-13 14:05 | CP.PCM.PN ---
Subjective - Date & Time of Evaluation Date of Evaluation: 07/13/17 Time of Evaluation: 08:00 - Subjective Subjective: PGY2 medicine progress note for Dr. Gordillo: Patient was seen and examined at bedside this morning. Patient stated she was upset because Psych saw her yesterday. She was stating that her arm is broken and her body is hot. She was told by Dr. Gordillo that she will be discharged soon but then the patient was upset. She has been refusing KELLY. The patient is eating was, was requesting ensure, and is having regular bowel movement. She is able to ambulate on her own with only mild assistance. Objective - Vital Signs/Intake and Output Vital Signs (last 24 hours): Temp Pulse Resp BP Pulse Ox 98.5 F 61 20 148/68 95 07/13/17 08:33 07/13/17 12:47 07/13/17 08:33 07/13/17 08:33 07/13/17 08:33 Intake and Output: 07/13/17 07/13/17 06:59 18:59 Intake Total 300 Balance 300 - Medications Medications: Current Medications Acetaminophen (Tylenol 325mg Tab) 650 mg PO Q6 PRN PRN Reason: Headache Last Admin: 07/12/17 19:06 Dose: 650 mg Albuterol/Ipratropium (Duoneb 3 Mg/0.5 Mg (3 Ml) Ud) 3 ml INH RQ4 PRN PRN Reason: WHEEZING/SOB Last Admin: 07/13/17 13:40 Dose: 3 ml Amlodipine Besylate (Norvasc) 10 mg PO DAILY [facility] Last Admin: 07/13/17 10:38 Dose: 10 mg Aspirin (Aspirin Chewable) 81 mg PO DAILY [facility] Last Admin: 07/13/17 10:38 Dose: 81 mg Benztropine Mesylate (Cogentin) 0.5 mg PO HS [facility] Last Admin: 07/12/17 21:45 Dose: Not Given Enoxaparin Sodium (Lovenox) 40 mg SC DAILY [facility] Last Admin: 07/13/17 10:38 Dose: Not Given Lidocaine (Lidoderm) 1 ea TD DAILY [facility] Last Admin: 07/13/17 10:39 Dose: 1 ea Lorazepam (Ativan) 0.5 mg PO Q6 PRN PRN Reason: Agitation Losartan Potassium (Cozaar) 100 mg PO DAILY [facility] Last Admin: 07/13/17 10:38 Dose: 100 mg Methylprednisolone (Solu-Medrol) 40 mg IVP Q12H [facility] Last Admin: 07/13/17 05:13 Dose: Not Given Risperidone (Risperdal Tab) 0.5 mg PO [facility] Last Admin: 07/12/17 21:45 Dose: Not Given Rosuvastatin Calcium (Crestor) 10 mg PO [facility] Last Admin: 07/12/17 21:45 Dose: 10 mg Fluticasone/Salmeterol (Advair Diskus 250/50) 1 puff INH RQ12 [facility] Last Admin: 07/13/17 07:27 Dose: 1 puff - Labs Labs: 07/12/17 11:47 07/12/17 11:47 PT 10.2 SECONDS (9.7-12.2) 07/09/17 21:01 INR 0.9 07/09/17 21:01 APTT 31 SECONDS (21-34) 07/09/17 21:01 - Constitutional Appears: Non-toxic, No Acute Distress - Head Exam Head Exam: ATRAUMATIC, NORMAL INSPECTION - Eye Exam Eye Exam: EOMI Pupil Exam: NORMAL ACCOMODATION - ENT Exam ENT Exam: Mucous Membranes Moist - Respiratory Exam Respiratory Exam: Clear to Ausculation Bilateral, NORMAL BREATHING PATTERN. absent: Accessory Muscle Use, Respiratory Distress - Cardiovascular Exam Cardiovascular Exam: REGULAR RHYTHM, +S1, +S2 - GI/Abdominal Exam GI & Abdominal Exam: Soft, Normal Bowel Sounds. absent: Distended, Guarding, Tenderness - Extremities Exam Extremities Exam: Normal Inspection Additional comments: mundo bandages on right arm - Back Exam Back Exam: NORMAL INSPECTION - Neurological Exam Neurological Exam: Alert, Awake, Oriented x3 - Psychiatric Exam Psychiatric exam: Normal Affect, Normal Mood Assessment and Plan - Assessment and Plan (Free Text) Assessment: Asthma exacerbation Duonebs RQ4 prn SOB/wheezing Advair 250/50 1 pugg RQ12 Solumedrol 40mg IVP Q12, Will now switch to Oral prednisone starting tomorrow AM. Patient will need to be discharged on prednisone taper. No wheezing today, improving HTN Norvasc 10mg PO daily Losartan 100mg PO daily HLD Crestor 10mg PO HS ASA 81mg PO daily Arthritis Lidoderm patch prn Tylenol prn pain Hx arm fracture Recent X rays show fx is healing Mundo bandage in place Paranoia Patient states everyone is stealing her medications at her home Patient is disorganized in her thought process Psych eval f/u social work for dispo planning Prophylaxis Lovenox 40mg SC daily heart healthy diet SCDa Dispo: Patient to be discharged tomorrow All management per Dr. Gordillo. Olamide Haddad DO PGY2
--- NOTE | 2017-07-13 15:31 | CARD ---
APPROVED REPORT EKG Measurement Heart [id number] OR [id number] <Conclusion> Normal sinus rhythm Left ventricular hypertrophy with repolarization abnormality Abnormal ECG
[2017-07-14 01:40] VITALS: RESP 20
[2017-07-14] MEDS: MethylPREDNISolone 40 mg Vial IVP SCH (06:06)
[2017-07-14] MEDS: Fluticasone-Salmeterol 250-50mcg Diskus INH SCH (07:22)
[2017-07-14] MEDS: Albuterol-Ipratrop 3 mg / 0.5 (3 ml) UD INH PRN (07:22)
--- NOTE | 2017-07-14 07:38 | CP.PCM.PN ---
Subjective - Date & Time of Evaluation Date of Evaluation: 07/14/17 Time of Evaluation: 07:35 - Subjective Subjective: PGy2 progress note for Dr. Gordillo Pt seen and examined at bedside. No acute events overnight. Patient states that throughout the night she experienced left sided chest pain and left sided cervical neck pain radiating to the shoulder. Pain is intermittent and sharp in nature. Pain kept pt up at night. Patient denies having any SOB, abd pain, N/V/D/C, F/C. Patient tolerating diet. Pt states wheezing has improved. Objective - Vital Signs/Intake and Output Vital Signs (last 24 hours): Temp Pulse Resp BP Pulse Ox 97.6 F 50 L 20 107/59 L 98 07/13/17 23:40 07/13/17 23:40 07/13/17 23:40 07/13/17 23:40 07/13/17 23:40 - Medications Medications: Current Medications Acetaminophen (Tylenol 325mg Tab) 650 mg PO Q6 PRN PRN Reason: Headache Last Admin: 07/14/17 01:54 Dose: 650 mg Albuterol/Ipratropium (Duoneb 3 Mg/0.5 Mg (3 Ml) Ud) 3 ml INH RQ4 PRN PRN Reason: WHEEZING/SOB Last Admin: 07/14/17 07:22 Dose: 3 ml Amlodipine Besylate (Norvasc) 10 mg PO DAILY [facility] Last Admin: 07/13/17 10:38 Dose: 10 mg Aspirin (Aspirin Chewable) 81 mg PO DAILY [facility] Last Admin: 07/13/17 10:38 Dose: 81 mg Benztropine Mesylate (Cogentin) 0.5 mg PO HS [facility] Last Admin: 07/13/17 21:49 Dose: Not Given Enoxaparin Sodium (Lovenox) 40 mg SC DAILY [facility] Last Admin: 07/13/17 10:38 Dose: Not Given Lidocaine (Lidoderm) 1 ea TD DAILY [facility] Last Admin: 07/13/17 10:39 Dose: 1 ea Lorazepam (Ativan) 0.5 mg PO Q6 PRN PRN Reason: Agitation Losartan Potassium (Cozaar) 100 mg PO DAILY [facility] Last Admin: 07/13/17 10:38 Dose: 100 mg Methylprednisolone (Solu-Medrol) 40 mg IVP Q12H [facility] Last Admin: 07/14/17 06:06 Dose: Not Given Prednisone (Prednisone Tab) 40 mg PO DAILY [facility] Risperidone (Risperdal Tab) 0.5 mg PO HS [facility] Last Admin: 07/13/17 21:48 Dose: Not Given Rosuvastatin Calcium (Crestor) 10 mg PO HS [facility] Last Admin: 07/13/17 21:51 Dose: 10 mg Fluticasone/Salmeterol (Advair Diskus 250/50) 1 puff INH RQ12 [facility] Last Admin: 07/14/17 07:22 Dose: 1 puff - Labs Labs: 07/12/17 11:47 07/12/17 11:47 PT 10.2 SECONDS (9.7-12.2) 07/09/17 21:01 INR 0.9 07/09/17 21:01 APTT 31 SECONDS (21-34) 07/09/17 21:01 - Constitutional Appears: Non-toxic, No Acute Distress - Head Exam Head Exam: ATRAUMATIC - ENT Exam ENT Exam: Mucous Membranes Moist - Respiratory Exam Respiratory Exam: Clear to Ausculation Bilateral. absent: Accessory Muscle Use , Rales, Rhonchi, Wheezes, Respiratory Distress - Cardiovascular Exam Cardiovascular Exam: REGULAR RHYTHM, +S1, +S2. absent: Gallop, Rubs, Murmur Additional comments: reproducible chest pain on palpation of left side of chest - GI/Abdominal Exam GI & Abdominal Exam: Soft, Normal Bowel Sounds. absent: Distended, Firm, Guarding, Rigid, Tenderness, Organomegaly - Extremities Exam Extremities Exam: absent: Pedal Edema, Tenderness - Neurological Exam Neurological Exam: Alert, Awake, Oriented x3 - Psychiatric Exam Psychiatric exam: Normal Affect, Normal Mood - Skin Skin Exam: Dry, Intact, Normal Color, Warm Assessment and Plan - Assessment and Plan (Free Text) Assessment: Asthma exacerbation Duonebs RQ4 prn SOB/wheezing Advair 250/50 1 pugg RQ12 Prednisone 40mg po qd. Will taper. Patient will need to be discharged on prednisone taper. No wheezing today, improving Chest pain stat EKG is unchanged from previous ekg. ROB was negative pain improved with toradol HTN Norvasc 10mg PO daily Losartan 100mg PO daily HLD Crestor 10mg PO HS ASA 81mg PO daily Arthritis Lidoderm patch prn Tylenol prn pain Hx arm fracture Recent X rays show fx is healing Mundo bandage in place Paranoia Patient states everyone is stealing her medications at her home Patient is disorganized in her thought process Psych eval. recommend Cogentin 0.5 mg po hs and resperidal 0.5 mg po hs. Ativan 0.5 mg q6 prn f/u social work for dispo planning Prophylaxis Lovenox 40mg SC daily heart healthy diet SCDs All management per Dr. Gordillo. Patient is stable for discharge home per Dr. Gordillo. Patient is to follow up with her primary care doctor upon discharge. Patient is to continue taking her home medications as prescribed. Patient will be discharged with the following medications: Medrol dose yovani, Percocet 5/325 mg po Q6 prn pain #10 tabs, Cogentin 0.5 mg po at night #30 tabs , Resperdal 0.5 mg po at night #30 tabs. She is also discharged with a new nebulizer machine script and a script for home PT/OT and nursing. Please return to the ED if symptoms worsen.
[2017-07-14 09:14] LABS: CK-MB 0.39 ng/mL (0.0-3.38)
[2017-07-14 09:22] VITALS: BP 138/77; PULSE 55; TEMP 98; O2SAT 97
[2017-07-14] MEDS: Enoxaparin 40 mg Syringe SC SCH ×2 (09:23→09:26)
[2017-07-14] MEDS: Lidocaine 5% Patch TD SCH (09:24)
[2017-07-14] MEDS ORDERED: Oxycodone/Acetaminophen 5/325 mg Tab PO STA (09:37)
--- NOTE | 2017-07-14 22:58 | CARD ---
APPROVED REPORT EKG Measurement Heart [id number] MI [id number] <Conclusion> Sinus bradycardia with sinus arrhythmia Otherwise normal ECG
--- NOTE | 2017-07-27 08:03 | DS ---
The patient was admitted to the hospital with chief complaint of chest pain. The patient placed on bedrest, supportive care, bronchodilator, cardiac enzymes negative. The patient got psych evaluation, discharged, to be followed up as outpatient. Gina Gordillo MD
== END 2017-07-14 15:13 | disposition home or self-care (01) | DRG 191 ==
LOC: C.ER 20:34 → C.9E 22:01 → C.6T 22:01
PROVIDERS: ADMIT Internal Medicine Pulmonary Disease; ATTEND Internal Medicine Pulmonary Disease
DX: J44.1 Chronic obstructive pulmonary disease with (acute) exacerbation (principal); J45.901 Unspecified asthma with (acute) exacerbation; F23 Brief psychotic disorder; I25.10 Atherosclerotic heart disease of native coronary artery without angina pectoris; I10 Essential (primary) hypertension; F22 Delusional disorders; E78.5 Hyperlipidemia, unspecified; E78.00 Pure hypercholesterolemia, unspecified; G89.21 Chronic pain due to trauma; M19.90 Unspecified osteoarthritis, unspecified site; Z87.11 Personal history of peptic ulcer disease; Z79.82 Long term (current) use of aspirin; Z79.899 Other long term (current) drug therapy; Z91.81 History of falling; Z90.49 Acquired absence of other specified parts of digestive tract

== ENCOUNTER 2018-03-18 12:49 | Day surgery (SDC) | payer OTHER ==
[2017-09-16 10:50] VITALS: BMI 21.7
[2018-03-18] MEDS ORDERED: Lactated Ringer's 1,000 ML IV ONE (14:15)
--- NOTE | 2018-03-18 14:16 | CP.SDSHP ---
Same Day Surgery H & P - History Proposed Procedure: EGD Pre-Op Diagnosis: SEE NOTES - Previous Medical/Surgical History Cardiac: Hypertension Pulmonary: Asthma Endocrine/Metabolic: Other Misc: Other Pain: 4.Moderate Pain Previous Surgical History: CHOLECYSTECTOMY - Allergies Allergies: Allergies Penicillins Allergy (Severe, Verified 06/26/17 07:16) RASH CRABS Allergy (Severe, Uncoded 06/26/17 07:16) RASH - Physical Exam General Appearance: N Vital Signs: Vital Signs 03/18/18 13:37 Temperature 97.7 F Pulse Rate 50 L Respiratory 18 Rate Blood Pressure 187/86 H O2 Sat by Pulse 98 Oximetry Mental Status: Alert & Oriented x3 Neuro: WNL Heart: Other Lungs: Other GI: WNL - {Optional Preform as Required} Breast: WNL Abdomen: Other Rectal: Other Integument: WNL : WNL Ortho: Other ENT: WNL - Impression Pt. Evaluated Today:Candidate for Anesthesia & Procedure: Yes - Date & Time Time: 14:15 Short Stay Discharge - Short Stay Discharge Admitting Diagnosis/Reason for Visit: GASTITIS, DIARRHEA Disposition: HOME/ ROUTINE
[2018-03-18] MEDS ORDERED: Propofol 10 mg/ml Inj (20 ML) ONE (14:18)
[2018-03-18] MEDS ORDERED: Pantoprazole 40 mg EC Tab PO ONE (14:30)
[2018-03-18] MEDS ORDERED: Belladonna-Phenobarbital PO ONE (14:30)
[2018-03-18 14:39] VITALS: TEMP 99.3
[2018-03-18 15:37] VITALS: BP 171/78; PULSE 57; RESP 14; O2SAT 98
== END 2018-03-18 16:04 | disposition home or self-care (01) ==
LOC: C.ENDO 12:49
PROVIDERS: ATTEND Specialist
DX: K29.70 Gastritis, unspecified, without bleeding (principal); K44.9 Diaphragmatic hernia without obstruction or gangrene; K21.0 Gastro-esophageal reflux disease with esophagitis; R19.7 Diarrhea, unspecified; K30 Functional dyspepsia; J44.9 Chronic obstructive pulmonary disease, unspecified; I10 Essential (primary) hypertension; E78.5 Hyperlipidemia, unspecified
CPT/HCPCS: 43239; 88305; 88342; J2704; J7040; J7120

== ENCOUNTER 2018-06-08 19:44 | Outpatient (CLI) | payer OTHER | END 2018-06-08 19:45 | disposition home or self-care (01) | LOC: C.SLEEP 19:45 | DX: G47.33 Obstructive sleep apnea (adult) (pediatric) (principal) ==

== ENCOUNTER 2018-07-05 20:08 | Emergency (ER) | payer OTHER, MEDICARE ==
[2018-07-05 20:11] VITALS: BMI 21.7
[2018-07-05 20:21] VITALS: O2SAT 97
--- NOTE | 2018-07-05 20:56 | C.PDOC ---
History Of Present Illness 68 year old female presents to ED s/p slip and fall that occurred today at approximately 1700. Patient states that while she was getting on her bus with her cart, she fell onto her left side. She complains of left-sided neck pain, left-sided chest pain, left upper back , and left knee. Patient has a PMHx of asthma and hypertension. She states that she is allergic to penicillin. Patient denies numbness, weakness, or headache. Time Seen by Provider: 07/05/18 20:13 Chief Complaint (Nursing): Upper Extremity Problem/Injury History Per: Patient History/Exam Limitations: no limitations Onset/Duration Of Symptoms: Hrs (3) Current Symptoms Are (Timing): Still Present Quality: "Pain" Past Medical History Reviewed: Historical Data, Nursing Documentation, Vital Signs Vital Signs: Last Vital Signs Temp 98.6 F 07/05/18 20:12 Pulse 54 L 07/05/18 20:12 Resp 20 07/05/18 20:12 BP 186/81 H 07/05/18 20:12 Pulse Ox 97 07/05/18 20:12 Primary Care Provider: Gina Gordillo - Medical History PMH: Anemia, Arthritis, Asthma, Back Problems, Fractures (RT WRIST), Gastritis, Gastrointestinal Ulcer, HTN, Hypercholesterolemia Denies: Chronic Kidney Disease Surgical History: Cholecystectomy Denies: Pacemaker - [facility] Procedures COLONOSCOPY (01/06/12) ESOPHAGOGASTRODUODENOSCOPY [EGD] W/CLOSED BIOPSY (01/06/12) Family History: States: Unknown Family Hx - Social History Hx Tobacco Use: No Hx Alcohol Use: No Hx Substance Use: No - Immunization History Hx Tetanus Toxoid Vaccination: No Hx Influenza Vaccination: Yes Hx Pneumococcal Vaccination: Yes Review Of Systems Constitutional: Negative for: Weakness Eyes: Negative for: Vision Change Cardiovascular: Positive for: Chest Pain (left-sided) Gastrointestinal: Negative for: Abdominal Pain Musculoskeletal: Positive for: Neck Pain (left-sided), Shoulder Pain (left shoulder), Back Pain (left upper back ), Leg Pain (left knee) Neurological: Negative for: Weakness, Numbness, Headache Physical Exam - Physical Exam Appears: Non-toxic, Other (mild painful distress) Skin: Normal Color, Warm, Dry, No Rash, No Ecchymosis Head: Atraumatic, Normacephalic Eye(s): bilateral: Normal Inspection, PERRL, EOMI Ear(s): Bilateral: Normal Nose: Normal, No Discharge Oral Mucosa: Moist Throat: No Erythema, No Exudate Neck: Normal ROM, No Midline Cervical Tenderness, Paracervical Tenderness (left- sided tenderness), Supple Chest: Symmetrical, No Deformity, Tenderness (left-sided chest wall tenderness), No Ecchymosis, No Subcutaneous Emphysema Cardiovascular: Rhythm Regular, No Friction Rub, No Murmur Respiratory: No Accessory Muscle Use, No Rales, No Rhonchi, No Wheezing Gastrointestinal/Abdominal: Soft, No Tenderness Back: No Vertebral Tenderness, Muscle Spasm (left parathoracic area) Extremity: Normal ROM, Capillary Refill (<2 seconds) Extremity: Bilateral: Atraumatic, Normal Color And Temperature, Normal ROM Pulses: Left Radial: Normal, Right Radial: Normal Neurological/Psych: Oriented x3, Normal Speech, Normal Cognition, Normal Motor, Normal Sensation Gait: Steady ED Course And Treatment O2 Sat by Pulse Oximetry: 97 (in RA) Pulse Ox Interpretation: Normal - CT Scan/US CT head Other Rad Studies (CT/US): Read By Radiologist, Radiology Report Reviewed CT/US Interpretation: EXAM: CT Head Without IV contrast. CLINICAL HISTORY: TRAUMA. TECHNIQUE: Axial computed tomography images of the head/brain without intravenous contrast. COMPARISON: None provided. FINDINGS: BRAIN: No acute intraparenchymal hemorrhage. No mass lesion. No CT evidence for acute territorial infarct. No midline shift or extra-axial collections. There is mild age-appropriate cerebral and cerebellar atrophy noted. There are bilateral periventricular and subcortical white matter hypolucencies compatible with mild chronic microvascular disease. VENTRICLES: No hydrocephalus. ORBITS: The orbits are unremarkable. SINUSES AND MASTOIDS: The paranasal sinuses and mastoid air cells are clear. BONES: No fracture. SOFT TISSUES: Unremarkable. IMPRESSION: 1. No acute intracranial abnormality. 2. Mild age-appropriate diffuse cerebral and cerebellar atrophy. 3. Evidence of mild chronic microvascular disease. . Electronically signed on July 05, 2018 10:01:19 PM EDT by: Constantine Mcghee M.D., M.B.A., Certified By ABR. Fellowship Trained MRI and CT Specialist CT C spine Other Rad Studies (CT/US): Read By Radiologist, Radiology Report Reviewed CT/US Interpretation: EXAM: CT Cervical Spine Without IV contrast. CLINICAL HISTORY: TRAUMA. TECHNIQUE: Axial computed tomography images of the cervical spine without intravenous contrast. Sagittal and coronal reformatted images were generated. COMPARISON: None provided. FINDINGS: ALIGNMENT: Bony alignment is anatomic. DEGENERATIVE CHANGES: No significant canal stenosis evident. There is left hypertrophic apophyseal facet arthropathy noted at C3-4, C4-5 and C5-6 which creates marked left exit foramen encroachment at these levels. Moderate degenerative arthritis is seen within the atlanto-dens interval. SOFT TISSUES: The prevertebral soft tissues are within normal limits. BONES: No acute fracture or aggressive appearing osseous lesion. IMPRESSION: 1. No acute cervical spine abnormality. 2. Left apophyseal hypertrophic facet arthropathy at C3-4, C4-5 and C5-6 with associated marked left exit foramen encroachment at these levels. 3. Moderate degenerative arthritis seen within the atlanto-dens interval. . Electronically signed on July 05, 2018 10:01:40 PM EDT by: Constantine Mcghee M.D., M.B.A., Certified By ABR. Fellowship Trained MRI and CT Specialist CT chest Other Rad Studies (CT/US): Read By Radiologist, Radiology Report Reviewed CT/US Interpretation: EXAM: CT Chest without Intravenous Contrast. CLINICAL HISTORY: TRAUMA/PLEURITIC CHEST PAIN. TECHNIQUE: Axial computed tomography images of the chest without intravenous contrast. 0.00 mGy-cm. CONTRAST: Without. COMPARISON: None provided. FINDINGS: LUNGS: The lungs appear essentially clear. No pulmonary mass. PLEURAL SPACES: No evidence of pneumothorax. No pleural effusion. HEART: Moderate cardiomegaly. No pericardial effusion. Mild aneurysmal dilatation is seen in the proximal ascending aortic arch measuring 4.9 x 4.9 cm in AP and transverse dimensions. Atherosclerotic vascular plaquing is seen within the aortic arch, lower descending thoracic aorta, right and LAD coronary arteries. LYMPH NODES: No lymphadenopathy is evident. BONES: No focal osseous abnormality or acute fracture. The coronal reconstructed images demonstrate mild dextroscoliotic curvature of the thoracic spine with the apex at T8. UPPER ABDOMEN: The upper abdomen demonstrates prior cholecystectomy. IMPRESSION: 1. Mild aneurysmal dilatation of the ascending aortic arch as described above measuring 4.9 x 4.9 cm. 2. Moderate cardiomegaly. 3. Atherosclerotic vascular plaquing as described above including the right and left anterior descending coronary arteries. 4. No acute pulmonary disease. . Electronically signed on July 05, 2018 10:23:14 PM EDT by: Constantine Mcghee M.D., M.B.A., Certified By ABR. Fellowship Trained MRI and CT Specialist. Medical Decision Making Medical Decision Making: Initial Plan: C-spine CT Head CT Motrin PO Tylenol PO Toradol IM Prior to discharge the patient rpeorts that she feels itchy from taking Ecotrin earlier in the day. Requesting benadryl. CT results of the patient were discussed. On re-exam, the patient report improvement of symptoms. Lungs are CTA, heart is RRR, abdomen is soft, non-tender and the patient is tolerating Po well. Pt is ambulatory in the ED with walker. Disposition - Disposition Referrals: Gina Gordillo MD [Staff Provider] - Disposition: HOME/ ROUTINE Disposition Time: 22:41 Condition: GOOD Additional Instructions: Follow up with the medical doctor within 1-2 days. Return if worsened. Prescriptions: DiphenhydrAMINE [Benadryl] 25 mg PO QID #28 cap Naproxen 375 mg PO BID #20 tablet traMADol [Ultram] 50 mg PO Q6 PRN #15 tab PRN Reason: Pain Instructions: Head Injury (ED) Forms: [facility] (Albanian) - Clinical Impression Clinical Impression: Cervical strain, Head injury, Rib contusion - PA / SORT WORKER / Resident Statement MD/DO has reviewed & agrees with the documentation as recorded. (Nedra Johnson) - Scribe Statement The provider has reviewed the documentation as recorded by the Scribe (Nedra Johnson) All medical record entries made by the Scribe were at my direction and personally dictated by me. I have reviewed the chart and agree that the record accurately reflects my personal performance of the history, physical exam, medical decision making, and the department course for this patient. I have also personally directed, reviewed, and agree with the discharge instructions and disposition.
[2018-07-05 22:52] VITALS: TEMP 97.8
[2018-07-05] MEDS ORDERED: Lidocaine 5% Patch TD STA (23:44)
[2018-07-05] MEDS ORDERED: Lidocaine 5% Patch TD ONE (23:55)
[2018-07-06 00:17] VITALS: BP 184/82; PULSE 54; RESP 18
--- NOTE | 2018-07-06 07:32 | CT ---
Date of service: 07/05/2018 PROCEDURE: CT HEAD WITHOUT CONTRAST. HISTORY: fall, head injury, r/o bleed COMPARISON: 09/18/2014 TECHNIQUE: Axial computed tomography images were obtained through the head/brain without intravenous contrast. Radiation dose: Total exam DLP = 1082.88 mGy-cm. This CT exam was performed using one or more of the following dose reduction techniques: Automated exposure control, adjustment of the mA and/or kV according to patient size, and/or use of iterative reconstruction technique. FINDINGS: HEMORRHAGE: No intracranial hemorrhage. BRAIN: No mass effect or edema. Scattered focal lucencies in the subcortical and periventricular white matter suggestive for chronic microvascular ischemic change. Persistent confluent area of low attenuation seen within the posterior right parietal subcortical white suggestive for chronic ischemic change. Diffuse generalized parenchymal atrophy. VENTRICLES: Unremarkable. No hydrocephalus. CALVARIUM: Unremarkable. PARANASAL SINUSES: Unremarkable as visualized. No significant inflammatory changes. MASTOID AIR CELLS: Unremarkable as visualized. No inflammatory changes. OTHER FINDINGS: None. IMPRESSION: No acute intracranial abnormality. Chronic microvascular ischemic change. Diffuse generalized parenchymal atrophy. If symptoms persists, consider correlation with MRI. A preliminary report was generated at 10:01 p.m. on 06/25/[address] Constantine Mcghee from [employer].
--- NOTE | 2018-07-06 10:55 | CT ---
Date of service: 07/05/2018 PROCEDURE: CT Cervical Spine without contrast HISTORY: Posttraumatic neck pain. COMPARISON: None available. TECHNIQUE: Axial computed tomography images were obtained of the cervical spine without the use of intravenous contrast. Coronal and sagittal reformatted images were created and reviewed. 3D volume rendering. Radiation dose: Total exam DLP = 296.47 mGy-cm. This CT exam was performed using one or more of the following dose reduction techniques: Automated exposure control, adjustment of the mA and/or kV according to patient size, and/or use of iterative reconstruction technique. FINDINGS: VERTEBRAE: No fracture. Normal alignment. No destructive bony lesion. DISCS/SPINAL CANAL/NEURAL FORAMINA: Mild disc degenerative change/disc space narrowing lower cervical spine. Osteophytes projecting into the neural foramen bilaterally C5-6 and C6-7 left greater than right. PARASPINAL SOFT TISSUES: Unremarkable. OTHER FINDINGS: None. IMPRESSION: No acute findings related to/ accounting for the clinical presentation. Degenerative changes as described. Concordant results (preliminary interpretation) provided by [facility]. Procedure Completed: 21:15. Preliminary Report: Interpreted and electronically signed: 22:01. Final Interpretation: 10:51. July 06, 2018.
--- NOTE | 2018-07-06 11:00 | CT ---
Date of service: 07/05/2018 PROCEDURE: CT Chest without contrast HISTORY: chest injury, pleuritic pain COMPARISON: None available. TECHNIQUE: Contiguous axial images were obtained through the chest without intravenous contrast enhancement. Sagittal and coronal reconstructions were performed. Radiation dose: Total exam DLP = 199.27 mGy-cm. This CT exam was performed using one or more of the following dose reduction techniques: Automated exposure control, adjustment of the mA and/or kV according to patient size, and/or use of iterative reconstruction technique. FINDINGS: LUNGS: Clear lungs. Visualized airway clear MEDIASTINUM: Aneurysmal dilatation of the ascending aorta 4.7 x 4.9 cm. Normal caliber descending aorta. Cardiomegaly. No evidence of acute, significant cardiovascular disease. Main pulmonary artery unremarkable. No vascular congestion. No lymphadenopathy. Atherosclerotic calcifications identified primarily aortic arch. PLEURA: No pleural fluid. No pneumothorax. BONES: No fracture. No destructive lesion. UPPER ABDOMEN: Grossly unremarkable. OTHER FINDINGS: None. IMPRESSION: No acute findings related to/ accounting for the clinical presentation. Aneurysmal dilatation of the ascending aorta. Cardiomegaly. No evidence of acute, significant cardiovascular disease. Concordant results (preliminary interpretation) provided by [facility] ([email or web address]). Procedure Completed: 21:19. Preliminary Report: Interpreted and electronically signed: 22:23. Final Interpretation: 10:56. July 06, 2018.
== END 2018-07-06 00:42 | disposition home or self-care (01) ==
LOC: C.ER 20:08
DX: S16.1XXA Strain of muscle, fascia and tendon at neck level, initial encounter (principal); S09.90XA Unspecified injury of head, initial encounter; S20.212A Contusion of left front wall of thorax, initial encounter; V78.4XXA Person boarding or alighting from bus injured in noncollision transport accident, initial encounter
CPT/HCPCS: 70450; 71250; 72125; 96372; 99284; J1885